=== PATIENT | female | born 1995 | race Two or more races ===

== ENCOUNTER 2024-01-21 16:18 | Outpatient (CLI) | payer BC, MEDICAID | END 2024-01-21 23:59 | disposition home or self-care (01) | LOC: RAD 16:18 | PROVIDERS: ATTEND Obstetrics & Gynecology | DX: N83.201 Unspecified ovarian cyst, right side (principal); Z30.430 Encounter for insertion of intrauterine contraceptive device; N85.4 Malposition of uterus | CPT/HCPCS: 76856; 93976 ==